=== PATIENT | male | born 1945 | race Caucasian/White ===

== ENCOUNTER 2021-10-31 20:17 | Emergency (ER) | payer SELFPAY ==
[~2021-10-31] VITALS: Ht 170.2 cm; Wt 80.0 kg
[2021-10-31 20:21] VITALS: BP 135/79
[2021-10-31] MEDS ORDERED: ONDANSETRON 4MG ODT PO ONE (23:45)
[2021-11-01] LABS: CHLORIDE 101 mEq/L (98-107)
[2021-11-01 00:09] LABS: EOSINOPHILS % 4.3 % (0.0-5.0); HEMATOCRIT. 42.1 % (42.0-52.0); HEMOGLOBIN. 14.6 g/dL (14.0-18.0); LYMPHOCYTES % 27.3 % (20.0-50.0); MEAN CORPUSCULAR HEMOGLOBIN 30.5 pg (28.0-32.0); MEAN CORPUSCULAR VOLUME 88.2 fL (80.0-94.0); MEAN PLATELET VOLUME 9.5 fl (7.4-10.4); MONOCYTES % 7.4 % (2.0-8.0); PLATELET 149 x1000/uL (130-400); RED BLOOD CELL COUNT 4.77 mill/uL (4.7-6.1); RED CELL DISTRIBUTION WIDTH 14.4 % (11.6-14.6)
[2021-11-01] MEDS ORDERED: ONDA4TAB50 MT (04:51)
[2021-11-01] MEDS ORDERED: MAGN296S70 MT (04:51)
== END 2021-11-01 04:20 | disposition left against medical advice (07) ==
LOC: ER 20:17
DX: R11.2 Nausea with vomiting, unspecified (principal); K59.00 Constipation, unspecified; R10.9 Unspecified abdominal pain; I10 Essential (primary) hypertension; E11.9 Type 2 diabetes mellitus without complications
CPT/HCPCS: 36415; 74176; 80053; 83690; 85025; 99284; Q0162